=== PATIENT | female | born 1930 | race Caucasian/White ===

== ENCOUNTER 2016-06-06 16:27 | Emergency (ER) | payer MEDICARE, OTHER ==
[~2016-06-06 16:27] MED LIST: ADVIL200 MG PO; ALEVE220 M1 PO; CALCIUM600 M1 PO; ESTRACE42.5 G1 VG; FLAGYL500 M1 PO; IRON325 M3 PO; LEVAQUIN250 MG PO; LEVAQUIN750 M1 PO; MELATONIN3 MG PO; MOTRIN600 MG PO; NO MEDICATIONS; NORCO 5-325 TA1 EACH PO; NORCO 5/325 TAB1 TAB PO; ONE DAILY FOR1 EAC4 PO; PERCOCET 5/3251 TAB PO; PREDNISOLONE AC15 ML OP; SENOKOT-S TABLE1 TAB PO; VITAMIN B12 SQ; VITAMIN C500 M6 PO; VITAMIN D2000 UNI1 PO; WELCHOL625 M1 PO
[2016-06-06] MEDS ORDERED: VITAMIN B-12250 MC2 PO (18:03)
[2016-06-06 18:41] LABS: BASO % 0.2 % (0-2); EOS % 0.2 % (0-7); HCT-HEMATOCRIT 39.6 % (34.0-49.0); HGB-HEMOGLOBIN 13.2 gm/dl (12.0-15.5); IMMATURE GRANULOCYTES ABSOLUTE 0.11 tho/cmm (0-0.03); IMMATURE GRANULOCYTES PERCENT 0.2 % (0-0.3); LYMPH % 87.4 % (20-45); MCH (MEAN CORPUSCULAR HGB) 33.8 pg (28.0-32.0); MCHC MEAN CORPUSCULAR HGB CONC 33.3 % (32.0-36.0); MCV (MEAN CELL VOLUME) 101.3 fl (82.0-96.0); MEAN PLATELET VOLUME 10.8 cmc (9.4-12.4); MONO % 1.6 % (0-12); NEUTROPHIL ABSOLUTE COUNT 5.2 tho/cmm (1.6-8.0); NEUTROPHIL-AUTOMATED 5.2 tho/cmm (1.6-8.0); NEUTROPHILS % 10.4 % (40-80); PLATELET COUNT 145 tho/cmm (150-450); RED BLOOD COUNT 3.91 mil/cmm (4.00-5.20); RED CELL DISTRIBUTION WIDTH 13.7 % (12.4-16.4)
[2016-06-06 18:44] LABS: BASO ABSOLUTE COUNT 0.1 tho/cmm (0.0-0.2); EOSINOPHIL ABSOLUTE COUNT 0.1 tho/cmm (0.0-0.7); LYMPH ABSOLUTE COUNT 43.6 tho/cmm (0.8-4.5); MONOCYTE ABSOLUTE COUNT 0.8 tho/cmm (0.0-1.2)
[2016-06-06 18:45] LABS: WHITE BLOOD COUNT 49.8 tho/cmm (4.0-10.0)
[2016-06-06 18:57] LABS: ANION GAP 11 mmol/L (0-20); BLOOD UREA NITROGEN 17 mg/dl (6-24); CARBON DIOXIDE-VENOUS 26 mmol/L (22-32); CHLORIDE 107 mmol/l (96-110); CREATININE 0.82 mg/dl (0.50-1.10); GLUCOSE 96 mg/dL (70-110); SODIUM 139 mmol/L (135-145); eGFR VALUE FOR BLACK 76 mL/Min
[2016-06-06 18:58] LABS: POTASSIUM 5.2 mmol/L (3.7-5.1)
[2016-06-06 19:38] LABS: WBC MORPHOLOGY VARIANT LYMPHS
== END 2016-06-06 19:56 ==
LOC: EDMED 16:27
PROVIDERS: Emergency Medicine
DX: B02.9 Zoster without complications (principal); R07.2 Precordial pain; C91.10 Chronic lymphocytic leukemia of B-cell type not having achieved remission; Z79.899 Other long term (current) drug therapy
CPT/HCPCS: J7030